=== PATIENT | male | born 1975 | race African-American/Black ===

== ENCOUNTER 2022-02-15 01:11 | Emergency (ER) | payer MEDICAID ==
[~2022-02-15] VITALS: Ht 177.8 cm; Wt 73.0 kg
[2022-02-15 02:23] VITALS: BP 129/47
[2022-02-15 03:15] LABS: BASOPHILS % 0.6 % (0.0-2.0); EOSINOPHILS % 1.1 % (0.0-5.0); HEMOGLOBIN. 13.5 g/dL (14.0-18.0); LYMPHOCYTES % 19.6 % (20.0-50.0); MEAN CORPUSCULAR HEMOGLOBIN 31.6 pg (28.0-32.0); MEAN CORPUSCULAR VOLUME 93.8 fL (80.0-94.0); MEAN PLATELET VOLUME 8.3 fl (7.4-10.4); MONOCYTES % 7.9 % (2.0-8.0); NEUTROPHILS % 70.8 % (40.0-76.0); PLATELET 263 x1000/uL (130-400); RED BLOOD CELL COUNT 4.26 mill/uL (4.7-6.1); RED CELL DISTRIBUTION WIDTH 15.4 % (11.6-14.6)
[2022-02-15 03:23] LABS: CHLORIDE 109 mEq/L (98-107)
== END 2022-02-15 05:40 | disposition home or self-care (01) ==
LOC: ER 01:11
DX: J20.9 Acute bronchitis, unspecified (principal); R05.9 Cough, unspecified; R04.2 Hemoptysis
CPT/HCPCS: 36415; 71045; 80053; 85025; 87070; 87430; 87804; 99284

== ENCOUNTER 2023-03-26 10:42 | Emergency (ER) | payer MEDICAID ==
[~2023-03-26] VITALS: Ht 175.3 cm; Wt 68.0 kg
[2023-03-26 11:04] VITALS: BP 142/97; PULSE 87; RESP 16; TEMP 98; O2SAT 98
[2023-03-26] MEDS ORDERED: CEFTRIAXONE SODIUM 500 MG/VIAL IM ONE (11:30)
[2023-03-26] MEDS ORDERED: DOXY100C5 MT (11:31)
[2023-03-26 11:54] LABS: CLARITY URINE CLEAR (CLEAR); COLOR URINE YELLOW (YELLOW); GLUCOSE URINE NEGATIVE (NEGATIVE); KETONES URINE NEGATIVE (NEGATIVE); LEUKOCYTE ESTERASE URINE NEGATIVE (NEGATIVE); NITRITE URINE NEGATIVE (NEGATIVE); OCCULT BLOOD URINE NEGATIVE (NEGATIVE); PROTEIN URINE NEGATIVE (NEGATIVE); SPECIFIC GRAVITY URINE 1.021 (1.005-1.030)
[2023-03-29 06:12] LABS: CHLAMYDIA TRACHOMATIS NAA Negative (Negative); NEISSERIA GONORRHOEAE NAA Negative (Negative)
== END 2023-03-26 13:42 | disposition home or self-care (01) ==
LOC: ER 10:42
DX: A64 Unspecified sexually transmitted disease (principal)
CPT/HCPCS: 87491; 87591; 81003; 96372; 99283; J0696; Z7610